=== PATIENT | female | born 1975 | race Asian ===

== ENCOUNTER 2025-03-29 15:15 | Emergency (ER) | payer BC, SELFPAY ==
[2025-03-29 15:22] VITALS: BP 121/99
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
[2025-03-29 17:14] VITALS: BMI 22.4
[2025-03-29] MEDS: PERCOCET 5/325 1 TABLET PO (17:34)
[2025-03-29 17:39] VITALS: BP 130/86
[2025-03-29 17:45] LABS: Hematocrit 35.6 % (37.0-47.0); Hemoglobin 11.8 g/dL (12.0-16.0); Mean Corp Hgb Conc. 33.1 g/dL (33.0-37.0); Mean Corpuscular Volume 83.4 fL (81.0-99.0); Nucleated Red Blood Cells % 0 %; Platelet Count 249 10^3/uL (130-400); Red Cell Dist. Width 15.4 % (11.5-14.5)
[2025-03-29 18:04] LABS: ALT (SGPT) 17 U/L (0-35); AST (SGOT) 26 U/L (14-36); Albumin 3.7 g/dl (3.5-5.0); Alkaline Phosphatase 82 U/L (38-126); Blood Urea Nitrogen 19 mg/dl (7-17); Calcium 8.3 mg/dl (8.4-10.2); Carbon Dioxide 23 mmol/L (22-30); Chloride 108 mmol/L (98-107); Estimated Creatinine Clearance 82 ml/min; Glucose 83 mg/dl (70-99); Potassium 3.8 mmol/L (3.5-5.1); Sodium 134 mmol/L (135-145); Total Protein 6.5 g/dl (6.3-8.2); eGFR > 60.00
[2025-03-29 18:05] LABS: HCG, Serum Qualitative Screen Negative
[2025-03-29 18:15] LABS: Troponin I < 0.012 ng/ml
[2025-03-29 18:19] VITALS: BP 124/99
[2025-03-29 19:00] VITALS: BP 134/89
== END 2025-03-29 19:55 | disposition home or self-care (01) ==
LOC: EMR 15:15
PROVIDERS: Physician Assistant; EMERGENCY PHYSICIAN Student in an Organized Health Care Education/Training Program; FAMILY PHYSICIAN Internal Medicine
DX: S22.22XA Fracture of body of sternum, initial encounter for closed fracture (principal); V43.52XA Car driver injured in collision with other type car in traffic accident, initial encounter; Y92.410 Unspecified street and highway as the place of occurrence of the external cause; M32.9 Systemic lupus erythematosus, unspecified
CPT/HCPCS: 99284; 71250; 80053; 84484; 84703; 85025; 93005